=== PATIENT | female | born 1950 | race Caucasian/White ===

== ENCOUNTER 2021-07-21 19:01 | Emergency (ER) | payer MEDICARE ==
[~2021-07-21] VITALS: Ht 162.6 cm; Wt 93.2 kg
[2021-07-21] MEDS ORDERED: CEPHALEXIN500 M1 PO (20:30)
[2021-07-21 21:00] VITALS: BP 130/77; PULSE 80
== END 2021-07-21 21:10 | disposition home or self-care (01) ==
LOC: COL.ER 19:01
DX: S96.922A Laceration of unspecified muscle and tendon at ankle and foot level, left foot, initial encounter (principal); Z28.311 Partially vaccinated for COVID-19; W22.8XXA Striking against or struck by other objects, initial encounter